=== PATIENT | female | born 1995 | race Caucasian/White ===

== ENCOUNTER 2021-08-27 12:16 | Emergency (ER) | payer OTHER, SELFPAY ==
[2021-08-27 12:29] VITALS: BP 119/65; PULSE 97; RESP 16; TEMP 36.4; O2SAT 97; BMI 38.4
--- NOTE | 2021-08-27 13:12 | ED.GENADULT ---
HPI - General Adult General Chief complaint: General Medical Stated complaint: throat issue Time Seen by Provider: 08/27/21 12:50 History of Present Illness HPI narrative: Patient is a 26-year-old female with a history of thyroid nodules. Presented today with having difficulty swallowing. Patient claims that she has no problem drinking water. She is eating but had to force it down. No vomiting. There is no change in her voice. There she is able to speak in complete sentences. Patient was seen at [facility] diagnosed with possible anxiety. Patient had a history of thyroid nodules. Was scheduled for a nodule biopsy last Saturday. No chest pain or diaphoresis. No history diabetes, hypertension, high cholesterol, smoking. No history of recreational drugs. Patient is from home. Related Data Allergies Allergy/AdvReac Type Severity Reaction Status Date / Time No Known Allergies Allergy Verified 08/27/21 13:12 Review of Systems Review of Systems: No fever no chills no chest pain or shortness of breath No diaphoresis All systems reviewed otherwise negative [facility] Past Medical History Attestation statement: The following information was validated with the patient. Medical History Thyroid nodule Surgical History Hx of tonsillectomy Social History Social History Advance Directives: No Physical Exam Vital Signs: Vital Signs: Last Vital Signs Temp 97.6 F 08/27/21 12:29 Pulse 97 08/27/21 12:29 Resp 16 08/27/21 12:29 BP 119/65 08/27/21 12:29 Pulse Ox 97 08/27/21 12:29 Body Mass Index 38.4 Appearance: Alert. Oriented X3. No acute distress. Eyes: Pupils equal, round and reactive to light. ENT: Pharynx normal. TMs intact. Nose is patent. No mid face tenderness elicited on palpation. Normal voice. Neck: Normal inspection. Neck supple. No lymph nodes noted. No crepitus. Trachea is midline. There is no mass palpable. CVS: Normal heart rate and rhythm. Pulses normal. Normal S1 and S2 Respiratory: No respiratory distress. Breath sounds normal. No Wheezing. No rales Abdomen: Soft and nontender. No rigidity. No distention. good BS x4 Skin: Skin warm and dry. Normal skin color. Normal skin turgor. Extremities: No lower extremity edema. Neurovascular intact to all extremities. No Lacerations. No Rash Neuro: Oriented X 3. No motor deficit. No sensory deficit. Moving all extermities. No slurred speech Medical Decision Making MDM Narrative Medical decision making narrative: Well-appearing no distress. Voice is normal. Able to swallow water without any difficulty. No shortness of breath. O2 sat 100% on room air. Discussed with patient need for follow-up. Patient's lungs are clear. Heart is regular. No distress. Explained patient need for outpatient workup. States understanding. Patient is being discharged home. Discharge Plan Discharge Clinical Impression: Throat pain Patient Disposition: Home, Self-Care Instructions: Thyroid Nodules (ED) Referrals: Physician,Unknown J [Primary Care Provider] - 2 days (Follow-up with your doctor in 2 days. Worsened breathing. Unable to swallow return to the emergency department. Change in voice return to the emergency department.)
--- NOTE | 2021-08-27 13:25 | PC.NURSE ---
this insurance underwriter sales went in to discharge pt, pt not found at bedside.
== END 2021-08-27 13:30 | disposition home or self-care (01) ==
PROVIDERS: Emergency Provider Emergency Medicine Emergency Medical Services
DX: J02.9 Acute pharyngitis, unspecified (principal); E04.1 Nontoxic single thyroid nodule
CPT/HCPCS: 99283

== ENCOUNTER 2021-09-25 23:23 | Emergency (ER) | payer OTHER, SELFPAY ==
[2021-09-26 01:22] VITALS: PULSE 95; RESP 18; TEMP 35.6; O2SAT 99; BMI 38.4
--- NOTE | 2021-09-26 01:39 | ED.GENADULT ---
HPI - General Adult General Chief complaint: General Medical Stated complaint: chest & leg pain, nausea, high bp Time Seen by Provider: 09/26/21 01:32 Source: patient Mode of arrival: ambulatory Limitations: no limitations History of Present Illness HPI narrative: Patient comes to the emergency room complaining of palpitations, near syncope. Patient states that she has history of anemia, states that earlier today she had palpitations, started feeling lightheaded. Patient did not pass out. Patient went to [facility], blood work was drawn but patient was not seen due to the long waiting time. At this time, patient is asymptomatic Related Data Allergies Allergy/AdvReac Type Severity Reaction Status Date / Time No Known Allergies Allergy Verified 08/27/21 13:12 Review of Systems Review of Systems: Constitutional : No Weight loss, No Fever, No Chills, No Night Sweats, No Fatigue, No Malaise ENT/Mouth : No Hearing loss, No Ear Pain, No Nasal Congestion, No Sinus Pain, No Hoarseness, No sore throat, No Rhinorrhea, No Swallowing Difficulty Eyes: No Eye Pain, No Swelling, No Redness, No Foreign Body, No Discharge, No Vision Changes Cardiovascular : Complaining of left-sided chest pain under the breast. No SOB, No Dyspnea on Exertion, No Orthopnea, No Edema, complaining of palpitations and near syncope/lightheadedness Respiratory : No Cough, No Sputum, No Wheezing, No Smoke Exposure, No Dyspnea Gastrointestinal : Complaining of Nausea, No Vomiting, No Diarrhea, No Constipation, No abdominal Pain, No Hematochezia, No Melena Genitourinary : no irregular bleeding, No Dysuria, No Urinary Frequency, No Hematuria, No Urinary Incontinence, No Urgency, No Flank Pain, No Urinary Flow Changes, No Hesitancy Musculoskeletal : No joint pain, No Myalgias, No Joint Swelling Skin : No Skin Lesions, No rash Neuro : No Weakness, No Numbness, No Paresthesias, No Loss of Consciousness, No Dizziness, No Headache Psych : No Anxiety/Panic, No Depression, No SI/HI/AH/VH, No Social Issues, Heme/Lymph: No Bruising, No Bleeding,No Lymphadenopathy Endocrine : No Polyuria, No Polydipsia, No Temperature Intolerance PMFSH Past Medical History Medical History (Updated 09/26/21 @ 03:03 by Jayde Marrufo MD) Eclampsia Thyroid nodule Surgical History Hx of tonsillectomy Social History Social History Advance Directives: No Physical Exam Vital Signs: Vital Signs: Last Vital Signs Temp 96.1 F L 09/26/21 01:22 Pulse 95 09/26/21 01:22 Resp 18 09/26/21 01:22 Pulse Ox 99 09/26/21 01:22 BMI result Body Mass Index 38.4 Const: Other: Appearance: Alert. Oriented X3. No acute distress. Eyes: Pupils equal, round and reactive to light. ENT: Pharynx normal. Neck: Normal inspection. Neck supple. No lymph nodes noted. No crepitus CVS: Normal heart rate and rhythm. Pulses normal. Normal S1 and S2 Respiratory: No respiratory distress. Breath sounds normal. No Wheezing. No rales Abdomen: Soft and nontender. No rigidity. No distention. good BS x4 Skin: Skin warm and dry. Normal skin color. Normal skin turgor. Extremities: No lower extremity edema. No Lacerations. No Rash Neuro: Oriented X 3. No motor deficit. No sensory deficit. Moving all extermities. No slurred speech. Course Course Course Narrative: I was informed by the patient's nurse that the patient eloped before the labs were drawn. Discharge Plan Discharge Clinical Impression: Palpitation, Near syncope Patient Disposition: Elopement Interventions: LWBS Worksheet Last Done: 09/26/21 01:42 Discharge Date/Time: 09/26/21 01:43
== END 2021-09-26 03:06 | disposition left against medical advice (07) ==
PROVIDERS: Emergency Provider Emergency Medicine; PCP Internal Medicine
DX: R00.2 Palpitations (principal); R55 Syncope and collapse
CPT/HCPCS: 99281; 99282; 99283; 99284

== ENCOUNTER 2021-12-16 02:38 | Emergency (ER) | payer OTHER, SELFPAY ==
--- NOTE | 2021-12-16 | ECG_ITS ---
Test Reason : PALP Blood Pressure : / mmHG Vent. Rate : 088 BPM Atrial Rate : 088 BPM P-R Int : 138 ms QRS Dur : 092 ms QT Int : 376 ms P-R-T Axes : 068 001 042 degrees QTc Int : 454 ms Normal sinus rhythm Normal ECG No previous ECGs available Referred By: Generic ED Physician Electronically Signed By:MISTY VALLE
[2021-12-16 02:47] VITALS: BP 116/66; PULSE 93; RESP 16; TEMP 35.8; O2SAT 100; BMI 38.4
--- NOTE | 2021-12-16 03:14 | ED.ARRPALP ---
HPI - Arrhythmia/Palpitations General Chief Complaint: Arrhythmia/Palpitations Stated Complaint: chest pain, heart palp Time Seen by Provider: 12/16/21 02:59 Source: patient Mode of arrival: ambulatory Limitations: no limitations History of Present Illness HPI narrative: Patient comes to the emergency room complaining of palpitations. Patient states that sometimes at night or when she is at rest she has episodes of palpitations, heart rate up to 130. Sometimes her chest hurts. Night patient had an episode of palpitations and came to emergency room. Patient states that this episodes have been ongoing since approximately 7 months ago, started after she gave to her baby. Patient states that she has a nodule in her thyroid, she has had multiple TSH and FT4 checks, and also fine-needle biopsies. Patient states that she has no diagnosis for the thyroid nodule Related Data Allergies Allergy/AdvReac Type Severity Reaction Status Date / Time amoxicillin Allergy Unknown Verified 12/16/21 02:46 clavulanic acid Allergy Unknown Verified 12/16/21 02:46 [From Augmentin] ibuprofen [From Motrin] Allergy Unknown Verified 12/16/21 02:46 sulfamethoxazole Allergy Unknown Verified 12/16/21 02:46 [From Bactrim] trimethoprim [From Bactrim] Allergy Unknown Verified 12/16/21 02:46 Review of Systems Review of Systems: Constitutional : No Weight loss, No Fever, No Chills, No Night Sweats, No Fatigue, No Malaise ENT/Mouth : No Hearing loss, No Ear Pain, No Nasal Congestion, No Sinus Pain, No Hoarseness, No sore throat, No Rhinorrhea, No Swallowing Difficulty Eyes: No Eye Pain, No Swelling, No Redness, No Foreign Body, No Discharge, No Vision Changes Cardiovascular : Occasional chest pain not at this time, No SOB, No Dyspnea on Exertion, No Orthopnea, No Edema, complaining of intermittent palpitations Respiratory : No Cough, No Sputum, No Wheezing, No Smoke Exposure, No Dyspnea Gastrointestinal : No Nausea, No Vomiting, No Diarrhea, No Constipation, No abdominal Pain, No Hematochezia, No Melena Genitourinary : no irregular bleeding, No Dysuria, No Urinary Frequency, No Hematuria, No Urinary Incontinence, No Urgency, No Flank Pain, No Urinary Flow Changes, No Hesitancy Musculoskeletal : No joint pain, No Myalgias, No Joint Swelling Skin : No Skin Lesions, No rash Neuro : No Weakness, No Numbness, No Paresthesias, No Loss of Consciousness, No Dizziness, No Headache Psych : No Anxiety/Panic, No Depression, No SI/HI/AH/VH, No Social Issues, Heme/Lymph: No Bruising, No Bleeding,No Lymphadenopathy Endocrine : No Polyuria, No Polydipsia, No Temperature Intolerance [facility] Past Medical History Medical History Eclampsia Thyroid nodule Surgical History Hx of tonsillectomy Social History Social History Advance Directives: No Advance Directives Information Provided: Yes Patient : No Physical Exam Vital Signs: Vital Signs: Last Vital Signs Temp 96.4 F L 12/16/21 02:47 Pulse 93 12/16/21 02:47 Resp 16 12/16/21 02:47 BP 116/66 12/16/21 02:47 Pulse Ox 100 12/16/21 02:47 BMI result Body Mass Index 38.4 Const: Other: Appearance: Alert. Oriented X3. No acute distress. Eyes: Pupils equal, round and reactive to light. ENT: Pharynx normal. Neck: Normal inspection. Neck supple. No lymph nodes noted. No crepitus CVS: Normal heart rate and rhythm. Pulses normal. Normal S1 and S2 Respiratory: No respiratory distress. Breath sounds normal. No Wheezing. No rales Abdomen: Soft and nontender. No rigidity. No distention. Skin: Skin warm and dry. Normal skin color. Normal skin turgor. Extremities: No lower extremity edema. No pain to palpation in the calf, No Lacerations. No Rash Neuro: Oriented X 3. No motor deficit. No sensory deficit. Moving all extermities. No slurred speech. Course Course Course Narrative: Patient has not had any episodes of tachycardia here in the emergency room. Patient remains asymptomatic. I discussed with the patient that she will likely benefit from a Holter monitor evaluation. MDM - Arrhythmia/Palpitations Lab Data Result diagrams: 12/16/21 03:33 12/16/21 03:33 Labs: Lab Results 12/16/21 12/16/21 12/16/21 Range/Units 03:33 03:33 03:33 WBC 7.5 (4.8-10.8) X10*3/uL RBC 4.52 (4.20-5.50) X10*6/uL Hgb 12.3 (12.0-16.0) g/dl Hct 37.5 (37.0-47.0) % MCV 83.0 (80.0-98.0) fL MCH 27.2 (27.0-33.0) pg MCHC 32.8 (31.0-35.0) g/dl RDW 14.6 (11.0-16.0) % Plt Count 269 (160-400) X10*3/uL MPV 10.5 (9.4-12.3) fL Immature Gran % (Auto) 0.1 (0.0-0.4) % Neut % (Auto) 60.7 (45-73) % Lymph % (Auto) 28.5 (20-40) % Scott % (Auto) 8.4 (2-11) % Eos % (Auto) 1.9 (0-4) % Baso % (Auto) 0.4 (0-2) % Lymph # (Auto) 2.1 (1.2-4.9) X10*3/uL Scott # (Auto) 0.6 (0.1-1.2) X10*3/uL Eos # (Auto) 0.1 (0.0-0.4) X10*3/uL Baso # (Auto) 0.0 (0.0-0.2) X10*3/uL Abs Immat Gran (auto) 0.01 (0.00-0.03) X10*3/uL Absolute Neuts (auto) 4.5 (2.0-8.3) x10*3/uL Absolute Nucleated RBC 0.000 (0.0-0.012) X10*3/uL Nucleated RBC % (auto) 0.0 (0.0-0.2) /100WBC Sodium 140 (135-145) mmol/L Potassium 4.2 (3.3-5.1) mmol/L Chloride 110 H (96-108) mmol/L Carbon Dioxide 21 L (22-29) mmol/L Anion Gap 13 (12-20) BUN 11 (9-16) mg/dL Creatinine 0.90 (0.5-1.4) mg/dL Estim Creat Clear Calc 131.1 Estimated GFR > 60 Random Glucose 100 (60-115) mg/dL Calcium 9.1 (8.4-10.2) mg/dL Troponin I High Sens < 3.5 (<3.5-17.0) ng/L TSH (0.32-4.0) uIU/mL Urine Test (NEGATIVE) Urine Opiates Screen (Not Detect) Urine Fentanyl Screen (Not Detect) Ur Barbiturates Screen (Not Detect) Ur Phencyclidine Scrn (Not Detect) Ur Amphetamines Screen (Not Detect) U Benzodiazepines Scrn (Not Detect) Urine Cocaine Screen (Not Detect) U Marijuana (THC) Screen (Not Detect) 12/16/21 12/16/21 12/16/21 Range/Units 03:33 03:35 03:35 WBC (4.8-10.8) X10*3/uL RBC (4.20-5.50) X10*6/uL Hgb (12.0-16.0) g/dl Hct (37.0-47.0) % MCV (80.0-98.0) fL MCH (27.0-33.0) pg MCHC (31.0-35.0) g/dl RDW (11.0-16.0) % Plt Count (160-400) X10*3/uL MPV (9.4-12.3) fL Immature Gran % (Auto) (0.0-0.4) % Neut % (Auto) (45-73) % Lymph % (Auto) (20-40) % Scott % (Auto) (2-11) % Eos % (Auto) (0-4) % Baso % (Auto) (0-2) % Lymph # (Auto) (1.2-4.9) X10*3/uL Scott # (Auto) (0.1-1.2) X10*3/uL Eos # (Auto) (0.0-0.4) X10*3/uL Baso # (Auto) (0.0-0.2) X10*3/uL Abs Immat Gran (auto) (0.00-0.03) X10*3/uL Absolute Neuts (auto) (2.0-8.3) x10*3/uL Absolute Nucleated RBC (0.0-0.012) X10*3/uL Nucleated RBC % (auto) (0.0-0.2) /100WBC Sodium (135-145) mmol/L Potassium (3.3-5.1) mmol/L Chloride (96-108) mmol/L Carbon Dioxide (22-29) mmol/L Anion Gap (12-20) BUN (9-16) mg/dL Creatinine (0.5-1.4) mg/dL Estim Creat Clear Calc Estimated GFR Random Glucose (60-115) mg/dL Calcium (8.4-10.2) mg/dL Troponin I High Sens (<3.5-17.0) ng/L TSH 0.55 (0.32-4.0) uIU/mL Urine Test NEGATIVE (NEGATIVE) Urine Opiates Screen Not Detected (Not Detect) Urine Fentanyl Screen Not Detected (Not Detect) Ur Barbiturates Screen Not Detected (Not Detect) Ur Phencyclidine Scrn Not Detected (Not Detect) Ur Amphetamines Screen Not Detected (Not Detect) U Benzodiazepines Scrn Not Detected (Not Detect) Urine Cocaine Screen Not Detected (Not Detect) U Marijuana (THC) Screen Not Detected (Not Detect) Discharge Plan Discharge Clinical Impression: Palpitations Patient Disposition: Home, Self-Care Instructions: Heart Palpitations (ED) Additional Instructions: Please follow-up with your primary care physician tomorrow. If you have any worsening or new symptoms, please return to the emergency room or call 911 Referrals: Lee Lan MD [Physician] - 2 days
[2021-12-16 03:37] LABS: Basophils Percent Auto 0.4 % (0-2); Eosinophils Absolute Auto 0.1 X10*3/uL (0.0-0.4); Eosinophils Percent Auto 1.9 % (0-4); Hematocrit 37.5 % (37.0-47.0); Hemoglobin 12.3 g/dl (12.0-16.0); Imm Gran Abs Auto 0.01 X10*3/uL (0.00-0.03); Imm Gran Pct Auto 0.1 % (0.0-0.4); Lymphocytes Absolute Auto 2.1 X10*3/uL (1.2-4.9); Lymphocytes Percent Auto 28.5 % (20-40); MANUAL DIFF FLAG NO; Mean Corpuscular HGB Conc 32.8 g/dl (31.0-35.0); Mean Corpuscular Hemoglobin 27.2 pg (27.0-33.0); Mean Platelet Volume 10.5 fL (9.4-12.3); Monocytes Absolute Auto 0.6 X10*3/uL (0.1-1.2); Monocytes Percent Auto 8.4 % (2-11); Neutrophils Absolute Auto 4.5 x10*3/uL (2.0-8.3); Neutrophils Percent Auto 60.7 % (45-73); Platelet Count 269 X10*3/uL (160-400); Red Blood Count 4.52 X10*6/uL (4.20-5.50); Red Cell Distribution Width 14.6 % (11.0-16.0); White Blood Count 7.5 X10*3/uL (4.8-10.8)
[2021-12-16 03:41] LABS: UPreg QC Valid YES; Urine Pregnancy NEGATIVE (NEGATIVE)
[2021-12-16 03:55] LABS: Anion Gap 13 (12-20); Blood Urea Nitrogen 11 mg/dL (9-16); Calcium 9.1 mg/dL (8.4-10.2); Carbon Dioxide 21 mmol/L (22-29); Chloride 110 mmol/L (96-108); Creatinine Clr Calc Pharmacy 131.1; Estimated Glomerular Filt Rate > 60; Glucose Random 100 mg/dL (60-115); Potassium 4.2 mmol/L (3.3-5.1); Sodium 140 mmol/L (135-145)
[2021-12-16 03:57] LABS: Amphetamine Screen Urine Not Detected (Not Detect); Barbiturates, Urine Not Detected (Not Detect); Benzodiazepines Screen Urine Not Detected (Not Detect); Cannabinoid Screen Urine Not Detected (Not Detect); Cocaine Screen Urine Not Detected (Not Detect); Fentanyl, urine Not Detected (Not Detect); Opiate Screen Urine Not Detected (Not Detect); Phencyclidine Screen Urine Not Detected (Not Detect)
[2021-12-16 04:00] LABS: Troponin-I High Sensitivity < 3.5 ng/L (<3.5-17.0)
[2021-12-16 04:19] LABS: TSH reflex Free T4 0.55 uIU/mL (0.32-4.0)
== END 2021-12-16 04:39 | disposition home or self-care (01) ==
PROVIDERS: Emergency Provider Emergency Medicine
DX: R00.2 Palpitations (principal); E04.1 Nontoxic single thyroid nodule
CPT/HCPCS: 36415; 80048; 80307; 81025; 84443; 84484; 85025; 93005; 99283

== ENCOUNTER 2021-12-18 01:57 | Emergency (ER) | payer OTHER, SELFPAY ==
--- NOTE | 2021-12-18 | ECG_ITS ---
Test Reason : CP Blood Pressure : / mmHG Vent. Rate : 081 BPM Atrial Rate : 081 BPM P-R Int : 148 ms QRS Dur : 090 ms QT Int : 392 ms P-R-T Axes : 051 -07 041 degrees QTc Int : 455 ms Normal sinus rhythm Normal ECG When compared with ECG of 16-DEC-2021 02:51, No significant change was found Referred By: Generic ED Physician Electronically Signed By:Gerhard Wyman
[2021-12-18 02:18] VITALS: BP 127/66; PULSE 87; RESP 18; TEMP 36.3; O2SAT 98; BMI 38.2
--- NOTE | 2021-12-18 02:31 | ED.CHESTPAIN ---
HPI - Chest Pain General Chief Complaint: Chest Pain Stated Complaint: chest pain Time Seen by Provider: 12/18/21 02:15 Source: patient Mode of arrival: ambulatory Limitations: no limitations History of Present Illness HPI narrative: Patient comes to the emergency room complaining of recurrent palpitations. Patient was seen here 2 days ago by myself, workup was negative. Also, patient was in the monitor for a several hours, she had no arrhythmias. Patient has had palpitations and sometimes intermittently for 7 months now, started after she delivered her baby, pt had pre ecalmpsia, but her BP improved 3 weeks post . Patient is working on trying to get seen by Cardiology. Patient denies right now any chest pain, no shortness of breath, no syncopal or near syncopal episodes, no palpitations at this time and states that she is asymptomatic Related Data Previous Rx's Medication Instructions Recorded metoprolol succinate 25 mg 25 mg PO DAILY #30 tab 12/18/21 tablet,extended release 24 hr (Toprol XL) Allergies Allergy/AdvReac Type Severity Reaction Status Date / Time amoxicillin Allergy Unknown Verified 12/16/21 02:46 clavulanic acid Allergy Unknown Verified 12/16/21 02:46 [From Augmentin] ibuprofen [From Motrin] Allergy Unknown Verified 12/16/21 02:46 sulfamethoxazole Allergy Unknown Verified 12/16/21 02:46 [From Bactrim] trimethoprim [From Bactrim] Allergy Unknown Verified 12/16/21 02:46 Review of Systems Review of Systems: Constitutional : No Weight loss, No Fever, No Chills, No Night Sweats, No Fatigue, No Malaise ENT/Mouth : No Hearing loss, No Ear Pain, No Nasal Congestion, No Sinus Pain, No Hoarseness, No sore throat, No Rhinorrhea, No Swallowing Difficulty Eyes: No Eye Pain, No Swelling, No Redness, No Foreign Body, No Discharge, No Vision Changes Cardiovascular : No Chest Pain, No SOB, No Dyspnea on Exertion, No Orthopnea, No Edema, complaining of intermittent Palpitations Respiratory : No Cough, No Sputum, No Wheezing, No Smoke Exposure, No Dyspnea Gastrointestinal : No Nausea, No Vomiting, No Diarrhea, No Constipation, No abdominal Pain, No Hematochezia, No Melena Genitourinary : no irregular bleeding, No Dysuria, No Urinary Frequency, No Hematuria, No Urinary Incontinence, No Urgency, No Flank Pain, No Urinary Flow Changes, No Hesitancy Musculoskeletal : No joint pain, No Myalgias, No Joint Swelling Skin : No Skin Lesions, No rash Neuro : No Weakness, No Numbness, No Paresthesias, No Loss of Consciousness, No Dizziness, No Headache Psych : No Anxiety/Panic, No Depression, No SI/HI/AH/VH, No Social Issues, Heme/Lymph: No Bruising, No Bleeding,No Lymphadenopathy Endocrine : No Polyuria, No Polydipsia, No Temperature Intolerance [facility] Past Medical History Medical History Eclampsia Thyroid nodule Surgical History Hx of tonsillectomy Social History Social History Advance Directives: No Advance Directives Information Provided: Yes Patient : No Physical Exam Vital Signs: Vital Signs: Last Vital Signs Temp 97.3 F 12/18/21 02:18 Pulse 87 12/18/21 02:18 Resp 18 12/18/21 02:18 BP 127/66 12/18/21 02:18 Pulse Ox 98 12/18/21 02:18 BMI result Body Mass Index 38.2 Const: Other: Appearance: Alert. Oriented X3. No acute distress. Eyes: Pupils equal, round and reactive to light. ENT: Pharynx normal. Neck: Normal inspection. Neck supple. No lymph nodes noted. No crepitus CVS: Normal heart rate and rhythm. Pulses normal. Normal S1 and S2 Respiratory: No respiratory distress. Breath sounds normal. No Wheezing. No rales Abdomen: Soft and nontender. No rigidity. No distention. Skin: Skin warm and dry. Normal skin color. Normal skin turgor. Extremities: No lower extremity edema. No lower extremity edema. No Lacerations. No Rash Neuro: Oriented X 3. No motor deficit. No sensory deficit. Moving all extermities. No slurred speech. Course Course Course Narrative: Patient's heart rate within normal limits, blood pressure 127/66, heart rate a 87. Patient had a thorough workup less than 48 hours ago. On her previous visit, I discussed with the patient that if she continued having intermittent palpitations, she would benefit from a beta-franco. Today I discussed the planning with the patient, she is agreeable to start metoprolol, and will follow up with Cardiology. Also, patient will likely need a Holter monitor. MDM - Chest Pain ECG Data ECG #1: Attestation: I personally reviewed and interpreted this ECG as follows: (Sinus rhythm, heart rate 81, this segment depression or elevation, no T-wave inversion, QTC 455) Discharge Plan Discharge Clinical Impression: Palpitation Patient Disposition: Home, Self-Care Instructions: Heart Palpitations (DC) Additional Instructions: Please follow-up with Cardiology and your primary care physician tomorrow. If you have any worsening or new symptoms, please return to the emergency room or call 911 Prescriptions: New metoprolol succinate [Toprol XL] 25 mg tablet extended release 24 hr 25 mg PO DAILY Qty: 30 0RF
[2021-12-18 02:39] VITALS: BP 120/51; PULSE 74; RESP 18; O2SAT 99
[2021-12-18] MEDS: Metoprolol Tartrate 25 MG TABLET PO (02:44)
== END 2021-12-18 02:47 | disposition home or self-care (01) ==
PROVIDERS: Emergency Provider Emergency Medicine; PCP Family Medicine
DX: R00.2 Palpitations (principal)
CPT/HCPCS: 93005; 99283; 99284

== ENCOUNTER 2022-01-24 21:04 | Emergency (ER) | payer OTHER, SELFPAY ==
--- NOTE | ~2022-01-24 | XR_ITS ---
EXAMINATION: XR CHEST CLINICAL INFORMATION: Chest tightness COMPARISON: None TECHNIQUE: Frontal view of the chest was obtained. FINDINGS: No significant abnormality is noted involving the heart, lungs, mediastinum, bony thorax or soft tissues. XR/XR chest 1V IMPRESSION: Unremarkable examination.
[2022-01-24 21:16] VITALS: BP 122/60; PULSE 105; RESP 18; TEMP 36.2; O2SAT 97; BMI 37.3
--- NOTE | 2022-01-24 21:21 | ECG_ITS ---
Test Reason : PALPITATIONS Blood Pressure : / mmHG Vent. Rate : 094 BPM Atrial Rate : 094 BPM P-R Int : 138 ms QRS Dur : 084 ms QT Int : 368 ms P-R-T Axes : 067 -13 032 degrees QTc Int : 460 ms Normal sinus rhythm Normal ECG When compared with ECG of 18-DEC-2021 02:03, No significant change was found Referred By: Generic ED Physician Electronically Signed By:ASHISH CHATTERJEE MD
[2022-01-24 22:07] LABS: MANUAL DIFF FLAG NO
[2022-01-24 22:09] LABS: Basophils Percent Auto 0.6 % (0-2); Eosinophils Absolute Auto 0.1 X10*3/uL (0.0-0.4); Eosinophils Percent Auto 1.1 % (0-4); Hematocrit 38.8 % (37.0-47.0); Hemoglobin 12.8 g/dl (12.0-16.0); Imm Gran Abs Auto 0.01 X10*3/uL (0.00-0.03); Imm Gran Pct Auto 0.2 % (0.0-0.4); Lymphocytes Absolute Auto 1.5 X10*3/uL (1.2-4.9); Lymphocytes Percent Auto 22.8 % (20-40); Mean Corpuscular Hemoglobin 27.5 pg (27.0-33.0); Mean Corpuscular Volume 83.3 fL (80.0-98.0); Mean Platelet Volume 10.1 fL (9.4-12.3); Monocytes Absolute Auto 0.6 X10*3/uL (0.1-1.2); Monocytes Percent Auto 8.6 % (2-11); Neutrophils Absolute Auto 4.4 x10*3/uL (2.0-8.3); Neutrophils Percent Auto 66.7 % (45-73); Platelet Count 342 X10*3/uL (160-400); Red Blood Count 4.66 X10*6/uL (4.20-5.50); Red Cell Distribution Width 14.1 % (11.0-16.0); White Blood Count 6.6 X10*3/uL (4.8-10.8)
[2022-01-24 22:26] LABS: Anion Gap 12 (12-20); Blood Urea Nitrogen 6 mg/dL (9-16); Calcium 9.7 mg/dL (8.4-10.2); Carbon Dioxide 25 mmol/L (22-29); Chloride 107 mmol/L (96-108); Creatinine Clr Calc Pharmacy 143.5; Estimated Glomerular Filt Rate > 60; Glucose Random 89 mg/dL (60-115); Potassium 4.3 mmol/L (3.3-5.1); Sodium 140 mmol/L (135-145)
--- NOTE | 2022-01-24 23:28 | ED.CHESTPAIN ---
HPI - Chest Pain General Chief Complaint: General Medical Stated Complaint: Chest tightness Time Seen by Provider: 01/24/22 23:27 Source: patient and old records reviewed Mode of arrival: ambulatory Limitations: no limitations History of Present Illness MD complaint: chest pain (palpitations, brain fog, poor sleep, headaches) Pertinent past history: other (frequent palpitations, told her PCOS was resolved after losing weight) Onset (ago): month(s) (on and off for months, this bout since last night) Timing of current episode: episodic Prior episodes: Yes Onset: during rest and during exertion Pain location: left chest and right chest Pain radiation: none Severity: moderate Quality: tightness Relieving factors: nothing Exacerbating factors: movement and stress Context: other (hx of bouts since delivering baby in April) Associated symptoms: dyspnea and palpitations Treatment prior to arrival: other (tried metoprolol and sertraline without effect) Related Data Previous Rx's Medication Instructions Recorded metoprolol succinate 25 mg 25 mg PO DAILY #30 tab 12/18/21 tablet,extended release 24 hr (Toprol XL) Allergies Allergy/AdvReac Type Severity Reaction Status Date / Time amoxicillin Allergy Unknown Verified 01/24/22 21:21 clavulanic acid Allergy Unknown Verified 01/24/22 21:21 [From Augmentin] ibuprofen [From Motrin] Allergy Unknown Verified 01/24/22 21:21 sulfamethoxazole Allergy Unknown Verified 01/24/22 21:21 [From Bactrim] trimethoprim [From Bactrim] Allergy Unknown Verified 01/24/22 21:21 Review of Systems Review of Systems: Constitutional : No Weight loss, No Fever, No Chills ENT/Mouth : No sore throat, No Rhinorrhea Eyes: No Eye Pain, No Swelling Cardiovascular : pos Chest Pain, no SOB, no Dyspnea on Exertion, No Orthopnea, No Edema, pos Palpitations Respiratory : No Cough, No Sputum Gastrointestinal : pos Nausea, No Vomiting, No Diarrhea, No abdominal Pain, No Hematochezia, No Melena Genitourinary : No Dysuria, No Urinary Frequency, pos irregular bleeding Musculoskeletal : No joint pain, No Myalgias, No Joint Swelling Skin : No Skin Lesions, No rash Neuro : No Weakness, No Numbness, No Dizziness, pos Headaches Psych : pos Anxiety/Panic, No Depression, pos insomnia Heme/Lymph: No Bruising, No Lymphadenopathy Endocrine : No Polyuria, No Polydipsia All other systems reviewed and are negative [facility] Past Medical History Medical History Eclampsia Thyroid nodule Surgical History Hx of tonsillectomy Social History Social History (Updated 01/24/22 @ 23:29 by Petra Rivera DO) Patient Tobacco Use Status: Never used Tobacco Advance Directives: No Advance Directives Information Provided: No Patient : No Physical Exam Vital Signs: Vital Signs: Last Vital Signs Temp 97.1 F 01/24/22 21:16 Pulse 105 H 01/24/22 21:16 Resp 18 01/24/22 21:16 BP 122/60 01/24/22 21:16 Pulse Ox 97 01/24/22 21:16 BMI result Body Mass Index 37.3 Appearance: Alert. Oriented X3. No acute distress. Eyes: Pupils equal, round and reactive to light. ENT: Pharynx normal. Neck: Normal inspection. Neck supple. CVS: Normal heart rate and rhythm. Pulses normal. Respiratory: No respiratory distress. Breath sounds normal. Abdomen: Soft and non-tender. Skin: Skin warm and dry. Normal skin color. Normal skin turgor. Extremities: No lower extremity edema. No calf ttp Neuro: Oriented X 3. No motor deficit. No sensory deficit. MDM - Chest Pain MDM Narrative Medical decision making narrative: 26 yo female with hx of palpitations for months, pre-eclampsia with child born in April not on medications since 2 weeks after, anxiety and depression - not on any meds right now other than PRN ativan. At this time repeat visits for palpitations has tried metoprolol but taken off due to low BP, has appointment with Cardiology at the end of this month at [facility] for 48 hour holter monitor. She also has hx of PCOS but was told it went away since she lost weight - she notes still irregular periods, palpitations, has some frontal hair loss, brain fog - ? her symptoms related to PCOS given the chronicity. At this time will order labs but refer her to [facility] where she is seen for possible PCOS as her underlying cause of symptoms Lab Data Result diagrams: 01/24/22 22:03 01/24/22 22:03 Labs: Lab Results 04/04/1101/24/22 01/24/22 Range/Units 22:03 22:03 22:03 WBC 6.6 (4.8-10.8) X10*3/uL RBC 4.66 (4.20-5.50) X10*6/uL Hgb 12.8 (12.0-16.0) g/dl Hct 38.8 (37.0-47.0) % MCV 83.3 (80.0-98.0) fL MCH 27.5 (27.0-33.0) pg MCHC 33.0 (31.0-35.0) g/dl RDW 14.1 (11.0-16.0) % Plt Count 342 D (160-400) X10*3/uL MPV 10.1 (9.4-12.3) fL Immature Gran % (Auto) 0.2 (0.0-0.4) % Neut % (Auto) 66.7 (45-73) % Lymph % (Auto) 22.8 (20-40) % Page % (Auto) 8.6 (2-11) % Eos % (Auto) 1.1 (0-4) % Baso % (Auto) 0.6 (0-2) % Lymph # (Auto) 1.5 (1.2-4.9) X10*3/uL Page # (Auto) 0.6 (0.1-1.2) X10*3/uL Eos # (Auto) 0.1 (0.0-0.4) X10*3/uL Baso # (Auto) 0.0 (0.0-0.2) X10*3/uL Abs Immat Gran (auto) 0.01 (0.00-0.03) X10*3/uL Absolute Neuts (auto) 4.4 (2.0-8.3) x10*3/uL Absolute Nucleated RBC 0.000 (0.0-0.012) X10*3/uL Nucleated RBC % (auto) 0.0 (0.0-0.2) /100WBC Sodium 140 (135-145) mmol/L Potassium 4.3 (3.3-5.1) mmol/L Chloride 107 (96-108) mmol/L Carbon Dioxide 25 (22-29) mmol/L Anion Gap 12 (12-20) BUN 6 L (9-16) mg/dL Creatinine 0.81 (0.5-1.4) mg/dL Estim Creat Clear Calc 143.5 Estimated GFR > 60 Random Glucose 89 (60-115) mg/dL Calcium 9.7 D (8.4-10.2) mg/dL Troponin I High Sens < 3.5 (<3.5-17.0) ng/L ECG Data ECG #1: Attestation: I personally reviewed and interpreted this ECG as follows: ECG interpretation date: 01/24/22 ECG interpretation time: 23:29 Interpretation: Rate: 94 Rhythm: NSR Callahan: left Normal P waves. Normal PRINCESS. Normal QRS complex. ST T wave : normal no YUE qTC: normal prior studies: unchanged from priors The study has been interpreted contemporaneously by me. Discharge Plan Discharge Clinical Impression: Heart palpitations Patient Disposition: Home, Self-Care Instructions: Heart Palpitations (ED) Additional Instructions: return to ED for any worsening symptoms or concerns your symptoms might be related to PCOS and hormone surges possible specialist Janet Esteban [facility] [phone] Prescriptions: No Action metoprolol succinate [Toprol XL] 25 mg tablet extended release 24 hr 25 mg PO DAILY Qty: 30 0RF Stand Alone Forms: Work/School Release
[2022-01-24 23:51] LABS: Troponin-I High Sensitivity < 3.5 ng/L (<3.5-17.0)
== END 2022-01-25 00:17 | disposition home or self-care (01) ==
PROVIDERS: Emergency Provider Emergency Medicine; PCP Family Medicine
DX: R07.9 Chest pain, unspecified (principal); R00.2 Palpitations; Z79.899 Other long term (current) drug therapy
CPT/HCPCS: 36415; 71045; 80048; 84484; 85025; 93005; 99283; 99284

== ENCOUNTER 2022-02-02 22:06 | Emergency (ER) | payer OTHER, SELFPAY ==
[2022-02-02 22:35] VITALS: BP 133/71; PULSE 112; RESP 18; TEMP 37.2; O2SAT 98; BMI 33.0
[2022-02-02 22:58] LABS: COVID-19 Test Negative (Negative); IDNOW Serial# 55D5AD1C; Influenza A Negative (Negative); Influenza B2 Negative (Negative)
--- NOTE | 2022-02-03 01:02 | ED.URI ---
HPI - URI/Sore Throat General Chief Complaint: Upper Respiratory Symptoms Stated Complaint: Cough/Chills Time Seen by Provider: 02/03/22 01:01 Source: patient Mode of arrival: ambulatory Limitations: no limitations History of Present Illness HPI Narrative: Patient Comes to emergency room complaining of 3 days of cough, congestion and chills. Patient was seen by her primary care physician a few hours ago, patient was diagnosed with influenza, Tamiflu was sent to the patient's pharmacy and prednisone. Patient's baby and checked in to be assessed for influenza, therefore patient decided to check in as well although she has no new complaints and already has a diagnosis Related Data Previous Rx's Medication Instructions Recorded metoprolol succinate 25 mg 25 mg PO DAILY #30 tab 12/18/21 tablet,extended release 24 hr (Toprol XL) Allergies Allergy/AdvReac Type Severity Reaction Status Date / Time amoxicillin Allergy Unknown Verified 01/24/22 21:21 clavulanic acid Allergy Unknown Verified 01/24/22 21:21 [From Augmentin] ibuprofen [From Motrin] Allergy Unknown Verified 01/24/22 21:21 sulfamethoxazole Allergy Unknown Verified 01/24/22 21:21 [From Bactrim] trimethoprim [From Bactrim] Allergy Unknown Verified 01/24/22 21:21 Review of Systems Review of Systems: Constitutional : No Weight loss, No Fever, complaining of Chills, No Night Sweats, No Fatigue, No Malaise ENT/Mouth : No Hearing loss, No Ear Pain, No Nasal Congestion, No Sinus Pain, No Hoarseness, No sore throat, No Rhinorrhea, No Swallowing Difficulty Eyes: No Eye Pain, No Swelling, No Redness, No Foreign Body, No Discharge, No Vision Changes Cardiovascular : No Chest Pain, No SOB, No Dyspnea on Exertion, No Orthopnea, No Edema, No Palpitations Respiratory : complaining of cough and congestion, occasional wheezing Gastrointestinal : No Nausea, No Vomiting, No Diarrhea, No Constipation, No abdominal Pain, No Hematochezia, No Melena Genitourinary : no irregular bleeding, No Dysuria, No Urinary Frequency, No Hematuria, No Urinary Incontinence, No Urgency, No Flank Pain, No Urinary Flow Changes, No Hesitancy Musculoskeletal : No joint pain, No Myalgias, No Joint Swelling Skin : No Skin Lesions, No rash Neuro : No Weakness, No Numbness, No Paresthesias, No Loss of Consciousness, No Dizziness, No Headache Psych : No Anxiety/Panic, No Depression, No SI/HI/AH/VH, No Social Issues, Heme/Lymph: No Bruising, No Bleeding,No Lymphadenopathy Endocrine : No Polyuria, No Polydipsia, No Temperature Intolerance PMF Past Medical History Medical History Eclampsia Thyroid nodule Surgical History Hx of tonsillectomy Social History Social History (Updated 01/24/22 @ 23:29 by Petra Rivera DO) Patient Tobacco Use Status: Never used Tobacco Advance Directives: No Physical Exam Vital Signs: Vital Signs: Last Vital Signs Temp 98.9 F 02/02/22 22:35 Pulse 112 H 02/02/22 22:35 Resp 18 02/02/22 22:35 BP 133/71 02/02/22 22:35 Pulse Ox 98 02/02/22 22:35 BMI result Body Mass Index 33.0 Const: Other: Appearance: Alert. Oriented X3. No acute distress. Eyes: Pupils equal, round and reactive to light. ENT: Pharynx normal. Neck: Normal inspection. Neck supple. No lymph nodes noted. No crepitus CVS: Normal heart rate and rhythm. Pulses normal. Normal S1 and S2 Respiratory: No respiratory distress. Breath sounds normal. No Wheezing. No rales Abdomen: Soft and nontender. No rigidity. No distention. Skin: Skin warm and dry. Normal skin color. Normal skin turgor. Extremities: No lower extremity edema. No Lacerations. No Rash Neuro: Oriented X 3. No motor deficit. No sensory deficit. Moving all extremities. No slurred speech. CN 2 through 12 grossly intact Psych: calm, cooperative, normal affect Course Course Course Narrative: Here in the emergency room patient tested negative for COVID and influenza. Patient states that she is afraid of taking Tamiflu that was prescribed earlier today because she is known to have adverse effects to several medications. I discussed with the patient that if she is concerned, not take the Tamiflu. It has been 3 days since the patient started having the symptoms, it is unlikely that Tamiflu would have any significant benefits. MDM - URI/Sore Throat Lab Data Labs: Lab Results 02/02/22 02/02/22 Range/Units 22:30 22:30 COVID-19 ([facility]) Negative (Negative) COVID-19 Clin Com See Note Influenza Type A ([facility]) Negative (Negative) Influenza Type B ([facility]) Negative (Negative) Influenza A & B Note See Note Discharge Plan Discharge Clinical Impression: Acute viral syndrome Patient Disposition: Home, Self-Care Instructions: Viral Syndrome (ED) Additional Instructions: Please follow-up with your primary care physician tomorrow. If you have any worsening or new symptoms, please return to the emergency room or call 911 Prescriptions: No Action metoprolol succinate [Toprol XL] 25 mg tablet extended release 24 hr 25 mg PO DAILY Qty: 30 0RF
== END 2022-02-03 02:18 | disposition home or self-care (01) ==
PROVIDERS: Emergency Provider Emergency Medicine; PCP Family Medicine
DX: B34.9 Viral infection, unspecified (principal); Z20.822 Contact with and (suspected) exposure to COVID-19
CPT/HCPCS: 87502; 87635; 99283

== ENCOUNTER 2022-02-17 20:37 | Emergency (ER) | payer OTHER, SELFPAY ==
--- NOTE | 2022-02-17 | ECG_ITS ---
Test Reason : chest pain Blood Pressure : / mmHG Vent. Rate : 090 BPM Atrial Rate : 090 BPM P-R Int : 142 ms QRS Dur : 090 ms QT Int : 362 ms P-R-T Axes : 004 075 026 degrees QTc Int : 442 ms Normal sinus rhythm Normal ECG When compared with ECG of 24-JAN-2022 21:51, Questionable change in QRS axis Referred By: Generic ED Physician Electronically Signed By:MISTY VALLE
--- NOTE | ~2022-02-17 | XR_ITS ---
EXAMINATION: XR CHEST CLINICAL INFORMATION: Chest pain. Shortness of breath. COMPARISON: Chest radiograph dated 01/24/2022. TECHNIQUE: Frontal view of the chest was obtained. FINDINGS: The lungs are clear. The cardiomediastinal silhouette is normal in size. There is no pleural effusion or pneumothorax. No acute osseous abnormality. XR/XR chest 1V IMPRESSION: No acute cardiopulmonary findings.
[2022-02-17 20:48] VITALS: BP 113/68; PULSE 93; RESP 18; TEMP 36.8; O2SAT 100; BMI 36.8
[2022-02-17 21:01] LABS: MANUAL DIFF FLAG NO
[2022-02-17 21:02] LABS: Basophils Percent Auto 0.4 % (0-2); Eosinophils Absolute Auto 0.1 X10*3/uL (0.0-0.4); Eosinophils Percent Auto 1.8 % (0-4); Hematocrit 37.1 % (37.0-47.0); Hemoglobin 12.5 g/dl (12.0-16.0); Imm Gran Abs Auto 0.02 X10*3/uL (0.00-0.03); Imm Gran Pct Auto 0.3 % (0.0-0.4); Lymphocytes Absolute Auto 1.9 X10*3/uL (1.2-4.9); Lymphocytes Percent Auto 26.1 % (20-40); Mean Corpuscular HGB Conc 33.7 g/dl (31.0-35.0); Mean Corpuscular Hemoglobin 27.6 pg (27.0-33.0); Mean Corpuscular Volume 81.9 fL (80.0-98.0); Mean Platelet Volume 10.5 fL (9.4-12.3); Monocytes Absolute Auto 0.6 X10*3/uL (0.1-1.2); Monocytes Percent Auto 8.2 % (2-11); Neutrophils Absolute Auto 4.5 x10*3/uL (2.0-8.3); Neutrophils Percent Auto 63.2 % (45-73); Platelet Count 318 X10*3/uL (160-400); Red Blood Count 4.53 X10*6/uL (4.20-5.50); Red Cell Distribution Width 13.9 % (11.0-16.0); White Blood Count 7.1 X10*3/uL (4.8-10.8)
[2022-02-17 21:18] VITALS: BP 123/70; PULSE 97; RESP 17; O2SAT 100
[2022-02-17 21:20] LABS: Troponin-I High Sensitivity < 3.5 ng/L (<3.5-17.0)
[2022-02-17 21:22] LABS: Alanine Aminotransferase 41 U/L (0-31); Albumin Level 4.2 g/dL (3.5-5.0); Alkaline Phosphatase 70 U/L (39-117); Anion Gap 12 (12-20); Aspartate Amino Transferase 31 U/L (5-31); Bilirubin Total 0.3 mg/dL (0.0-1.0); Blood Urea Nitrogen 8 mg/dL (9-16); Calcium 9.3 mg/dL (8.4-10.2); Carbon Dioxide 25 mmol/L (22-29); Chloride 109 mmol/L (96-108); Creatinine Clr Calc Pharmacy 121.3; Estimated Glomerular Filt Rate > 60; Glucose Random 103 mg/dL (60-115); Potassium 4.4 mmol/L (3.3-5.1); Sodium 142 mmol/L (135-145); Total Protein 7.6 g/dL (6.5-8.0)
[2022-02-17 21:28] LABS: Appearance Urine CLEAR; Color Urine YELLOW; Glucose Urine UA NEG (NEG); Leukocyte Esterase Urine NEG (NEG); Nitrite Urine NEG (NEG); Specific Gravity - Urine <= 1.005 (1.005-1.025); Urine Blood NEG (NEG); Urine Ketones NEG (NEG); Urine Protein NEG (NEG-TRACE)
[2022-02-17 21:33] LABS: HCG Quantitative < 2 mIU/mL
--- NOTE | 2022-02-17 22:13 | ED.CHESTPAIN ---
HPI - Chest Pain General Chief Complaint: Chest Pain Stated Complaint: palpations,chest pain Time Seen by Provider: 02/17/22 21:11 Source: patient Mode of arrival: ambulatory Limitations: no limitations History of Present Illness HPI narrative: This is a 26-year-old female who tells me she has ?thyroid issues , 10 months presenting to the emergency department with complaints of palpitations, shortness of breath times a few months, however she tells me that she had an episode of 3 thumps that she explains as her heart skipping a few beats that really scared her and prompt her to come in today. Patient tells me that when this happened she was sitting, not exerting herself, she also felt some chest discomfort and tightness. She tells me that lately she has been short of breath with exertion however not at rest. No history of DVT or PE. Not on control. Denies any long travel or sedentary lifestyle. MD complaint: chest heaviness Related Data Home Medications Medication Instructions Recorded Confirmed lorazepam 0.5 mg tablet 1 tab PO DAILY PRN 02/17/22 02/17/22 Allergies Allergy/AdvReac Type Severity Reaction Status Date / Time amoxicillin Allergy Unknown Verified 01/24/22 21:21 clavulanic acid Allergy Unknown Verified 01/24/22 21:21 [From Augmentin] ibuprofen [From Motrin] Allergy Unknown Verified 01/24/22 21:21 sulfamethoxazole Allergy Unknown Verified 01/24/22 21:21 [From Bactrim] trimethoprim [From Bactrim] Allergy Unknown Verified 01/24/22 21:21 Review of Systems Review of Systems: Constitutional : No Weight loss, No Fever, No Chills, No Fatigue, No Malaise ENT/Mouth : No sore throat, No Rhinorrhea Eyes: No Eye Pain, No Swelling, No Redness Cardiovascular : + Chest Pain, + SOB, + Dyspnea on Exertion, No Orthopnea, No Edema, No Palpitations Respiratory : No Cough, No Sputum, No Wheezing Gastrointestinal : No Nausea, No Vomiting, No Diarrhea, No Constipation, No abdominal Pain, No Hematochezia, No Melena Genitourinary : No Dysuria, No Urinary Frequency, No Hematuria, Musculoskeletal : No joint pain, No Myalgias, No Joint Swelling Skin : No Skin Lesions, No rash Neuro : No Weakness, No Numbness, No Dizziness, No Headache Psych : No Anxiety/Panic, No Depression All other systems reviewed and are negative Yes all other systems are reviewed and are negative [facility] Past Medical History Attestation statement: The following information was validated with the patient. Source: old records reviewed and nursing notes reviewed Medical History Eclampsia Thyroid nodule Surgical History Hx of tonsillectomy Social History Social History Alcohol intake: never Patient Tobacco Use Status: Never used Tobacco Use of substances other than those prescribed or required for medical reasons: No Advance Directives: No Advance Directives Information Provided: No Physical Exam Vital Signs: Vital Signs: Last Vital Signs Temp 99.0 F 02/18/22 00:28 Pulse 86 02/18/22 00:28 Resp 18 02/18/22 00:28 BP 107/54 L 02/18/22 00:28 Pulse Ox 99 02/18/22 00:28 BMI result Body Mass Index 36.8 VSS Appearance: Alert.? Oriented X3.? No acute distress.? Head: Normocephalic, atraumatic, no step-offs or deformities Eyes: Pupils equal, round and reactive to light.? ENT: Pharynx normal.? Neck: Normal inspection.? Neck supple.? CVS: Rapid rate regular rhythm likely sinus tachycardia Pulses normal.? Respiratory: No respiratory distress.? Breath sounds normal.? Abdomen: Soft and nontender.? Skin: Skin warm and dry.? Normal skin color.? Normal skin turgor.? Extremities: No lower extremity edema.? No calf ttp, negative darien b/l. 5/5 strength to bilateral upper and lower extremities Back: No midline tenderness, no C-spine tenderness, full range of motion, no CVA tenderness bilaterally Neuro: Oriented X 3.? No motor deficit.? No sensory deficit. CN 2-12 intact Course Reevaluation(s) Reevaluation #1: CBC within normal limits. Chemistry with no acute electrolyte abnormalities requiring intervention. TSH and free T4 do not require emergent intervention at this time. D-dimer negative. Troponin negative, EKG nonischemic unlikely that this is ACS, unlikely PE/DVT. Urine clean. Chest x-ray with no acute findings. Time: 00:07 Reevaluation #2: Pending COVID, influenza . Time: 00:21 Reevaluation #3: COVID influenza negative. Patient's history and physical examination not consistent with ACS, unlikely PE/DVT. Will have her follow-up with Cardiology. Discussed TSH value with . Comfortable with discharge home with PCP follow-up and cardiology follow-up. Time: 00:58 MDM - Chest Pain MDM Narrative Medical decision making narrative: 2199 26-year-old female presents with complaints of chest discomfort/heaviness, shortness of breath and palpitations times a few months, with 1 severe episode just prior to her arrival. PERC score negative. Patient low risk for PE/DVT Physical examination significant for rapid regular rhythm likely sinus tachycardia. Negative Darien bilaterally. Lungs clear. Patient appears comfortable no acute distress. Abdomen soft nontender nondistended. No focal neuro deficits. Plan at this time is labs, imaging, thyroid function. Medical Records Data Attestation: I reviewed the patient's medical records. Lab Data Attestation: I reviewed the patient's lab results. Result diagrams: 02/17/22 20:57 02/17/22 20:57 Labs: Lab Results 02/17/22 02/17/22 02/17/22 Range/Units 20:57 20:57 20:57 WBC 7.1 (4.8-10.8) X10*3/uL RBC 4.53 (4.20-5.50) X10*6/uL Hgb 12.5 (12.0-16.0) g/dl Hct 37.1 (37.0-47.0) % MCV 81.9 (80.0-98.0) fL MCH 27.6 (27.0-33.0) pg MCHC 33.7 (31.0-35.0) g/dl RDW 13.9 (11.0-16.0) % Plt Count 318 (160-400) X10*3/uL MPV 10.5 (9.4-12.3) fL Immature Gran % (Auto) 0.3 (0.0-0.4) % Neut % (Auto) 63.2 (45-73) % Lymph % (Auto) 26.1 (20-40) % [place] % (Auto) 8.2 (2-11) % Eos % (Auto) 1.8 (0-4) % Baso % (Auto) 0.4 (0-2) % Lymph # (Auto) 1.9 (1.2-4.9) X10*3/uL [place] # (Auto) 0.6 (0.1-1.2) X10*3/uL Eos # (Auto) 0.1 (0.0-0.4) X10*3/uL Baso # (Auto) 0.0 (0.0-0.2) X10*3/uL Abs Immat Gran (auto) 0.02 (0.00-0.03) X10*3/uL Absolute Neuts (auto) 4.5 (2.0-8.3) x10*3/uL Absolute Nucleated RBC 0.000 (0.0-0.012) X10*3/uL Nucleated RBC % (auto) 0.0 (0.0-0.2) /100WBC D-Dimer High Sensitivty NG/ML Sodium 142 (135-145) mmol/L Potassium 4.4 (3.3-5.1) mmol/L Chloride 109 H (96-108) mmol/L Carbon Dioxide 25 (22-29) mmol/L Anion Gap 12 (12-20) BUN 8 L (9-16) mg/dL Creatinine 0.95 (0.5-1.4) mg/dL Estim Creat Clear Calc 121.3 Estimated GFR > 60 Random Glucose 103 (60-115) mg/dL Calcium 9.3 (8.4-10.2) mg/dL Total Bilirubin 0.3 (0.0-1.0) mg/dL AST 31 (5-31) U/L ALT 41 H (0-31) U/L Alkaline Phosphatase 70 (39-117) U/L Troponin I High Sens < 3.5 (<3.5-17.0) ng/L B-Natriuretic Peptide < 10 (<100) pg/mL Total Protein 7.6 (6.5-8.0) g/dL Albumin 4.2 (3.5-5.0) g/dL TSH 0.23 L (0.32-4.0) uIU/mL Free T4 1.18 (0.71-1.85) ng/dL Beta HCG, Quant < 2 mIU/mL Urine Color Urine Appearance Urine pH (5.0-8.0) Ur Specific [place] (1.005-1.025) Urine Protein (NEG-TRACE) MG/DL Urine Glucose (UA) (NEG) MG/DL Urine Ketones (NEG) MG/DL Urine Blood (NEG) Urine Nitrite (NEG) Ur Leukocyte Esterase (NEG) COVID-19 ([facility]) (Negative) COVID-19 Clin Com Influenza Type A ([facility]) (Negative) Influenza Type B ([facility]) (Negative) Influenza A & B Note 02/17/22 02/17/22 02/18/22 Range/Units 21:21 22:55 00:12 WBC (4.8-10.8) X10*3/uL RBC (4.20-5.50) X10*6/uL Hgb (12.0-16.0) g/dl Hct (37.0-47.0) % MCV (80.0-98.0) fL MCH (27.0-33.0) pg MCHC (31.0-35.0) g/dl RDW (11.0-16.0) % Plt Count (160-400) X10*3/uL MPV (9.4-12.3) fL Immature Gran % (Auto) (0.0-0.4) % Neut % (Auto) (45-73) % Lymph % (Auto) (20-40) % [place] % (Auto) (2-11) % Eos % (Auto) (0-4) % Baso % (Auto) (0-2) % Lymph # (Auto) (1.2-4.9) X10*3/uL [place] # (Auto) (0.1-1.2) X10*3/uL Eos # (Auto) (0.0-0.4) X10*3/uL Baso # (Auto) (0.0-0.2) X10*3/uL Abs Immat Gran (auto) (0.00-0.03) X10*3/uL Absolute Neuts (auto) (2.0-8.3) x10*3/uL Absolute Nucleated RBC (0.0-0.012) X10*3/uL Nucleated RBC % (auto) (0.0-0.2) /100WBC D-Dimer High Sensitivty 176 NG/ML Sodium (135-145) mmol/L Potassium (3.3-5.1) mmol/L Chloride (96-108) mmol/L Carbon Dioxide (22-29) mmol/L Anion Gap (12-20) BUN (9-16) mg/dL Creatinine (0.5-1.4) mg/dL Estim Creat Clear Calc Estimated GFR Random Glucose (60-115) mg/dL Calcium (8.4-10.2) mg/dL Total Bilirubin (0.0-1.0) mg/dL AST (5-31) U/L ALT (0-31) U/L Alkaline Phosphatase (39-117) U/L Troponin I High Sens (<3.5-17.0) ng/L B-Natriuretic Peptide (<100) pg/mL Total Protein (6.5-8.0) g/dL Albumin (3.5-5.0) g/dL TSH (0.32-4.0) uIU/mL Free T4 (0.71-1.85) ng/dL Beta HCG, Quant mIU/mL Urine Color YELLOW Urine Appearance CLEAR Urine pH 6.0 (5.0-8.0) Ur Specific [place] <= 1.005 (1.005-1.025) Urine Protein NEG (NEG-TRACE) MG/DL Urine Glucose (UA) NEG (NEG) MG/DL Urine Ketones NEG (NEG) MG/DL Urine Blood NEG (NEG) Urine Nitrite NEG (NEG) Ur Leukocyte Esterase NEG (NEG) COVID-19 ([facility]) (Negative) COVID-19 Clin Com Influenza Type A ([facility]) Negative (Negative) Influenza Type B ([facility]) Negative (Negative) Influenza A & B Note See Note 02/18/22 Range/Units 00:12 WBC (4.8-10.8) X10*3/uL RBC (4.20-5.50) X10*6/uL Hgb (12.0-16.0) g/dl Hct (37.0-47.0) % MCV (80.0-98.0) fL MCH (27.0-33.0) pg MCHC (31.0-35.0) g/dl RDW (11.0-16.0) % Plt Count (160-400) X10*3/uL MPV (9.4-12.3) fL Immature Gran % (Auto) (0.0-0.4) % Neut % (Auto) (45-73) % Lymph % (Auto) (20-40) % [place] % (Auto) (2-11) % Eos % (Auto) (0-4) % Baso % (Auto) (0-2) % Lymph # (Auto) (1.2-4.9) X10*3/uL [place] # (Auto) (0.1-1.2) X10*3/uL Eos # (Auto) (0.0-0.4) X10*3/uL Baso # (Auto) (0.0-0.2) X10*3/uL Abs Immat Gran (auto) (0.00-0.03) X10*3/uL Absolute Neuts (auto) (2.0-8.3) x10*3/uL Absolute Nucleated RBC (0.0-0.012) X10*3/uL Nucleated RBC % (auto) (0.0-0.2) /100WBC D-Dimer High Sensitivty NG/ML Sodium (135-145) mmol/L Potassium (3.3-5.1) mmol/L Chloride (96-108) mmol/L Carbon Dioxide (22-29) mmol/L Anion Gap (12-20) BUN (9-16) mg/dL Creatinine (0.5-1.4) mg/dL Estim Creat Clear Calc Estimated GFR Random Glucose (60-115) mg/dL Calcium (8.4-10.2) mg/dL Total Bilirubin (0.0-1.0) mg/dL AST (5-31) U/L ALT (0-31) U/L Alkaline Phosphatase (39-117) U/L Troponin I High Sens (<3.5-17.0) ng/L B-Natriuretic Peptide (<100) pg/mL Total Protein (6.5-8.0) g/dL Albumin (3.5-5.0) g/dL TSH (0.32-4.0) uIU/mL Free T4 (0.71-1.85) ng/dL Beta HCG, Quant mIU/mL Urine Color Urine Appearance Urine pH (5.0-8.0) Ur Specific [place] (1.005-1.025) Urine Protein (NEG-TRACE) MG/DL Urine Glucose (UA) (NEG) MG/DL Urine Ketones (NEG) MG/DL Urine Blood (NEG) Urine Nitrite (NEG) Ur Leukocyte Esterase (NEG) COVID-19 ([facility]) Negative (Negative) COVID-19 Clin Com See Note Influenza Type A ([facility]) (Negative) Influenza Type B ([facility]) (Negative) Influenza A & B Note Critical Care Time Critical Care Time Critical Care Time: No Discharge Plan Discharge Clinical Impression: Chest pain, Palpitations Patient Disposition: Home, Self-Care Instructions: Chest Pain (ED), Heart Palpitations (ED) Additional Instructions: Take your medications as prescribed. If you were prescribed antibiotics today, it is important that you take your medication to their entirety, do not skip any doses, do not finish them early. Follow-up with your primary care provider this week. You should follow up with Cardiology as you may require Holter monitor. Please follow-up with endocrinology. Return to the emergency department with new or worsening symptoms. Such as fevers, chills, chest pain, shortness of breath, nausea, vomiting, dizziness, headache, vision changes, lethargy In case of emergency call 911 You tested negative for flu and COVID. Prescriptions: No Action lorazepam 0.5 mg tablet 1 tab PO DAILY PRN (Reason: Anxiety) 0RF Referrals: Juan A Linda MD [Primary Care Provider] - 2 days Kaiser Flanagan MD [Physician] - 1 week Lee Lan MD [Physician] - 2 weeks Stand Alone Forms: Work/School Release
[2022-02-17 22:47] VITALS: BP 116/59; PULSE 84; RESP 14; O2SAT 100
[2022-02-17 23:07] LABS: D Dimer High Sensitivity 176 NG/ML
[2022-02-17 23:12] LABS: B Type Natriuretic Peptide < 10 pg/mL (<100)
[2022-02-17 23:26] LABS: TSH reflex Free T4 0.23 uIU/mL (0.32-4.0)
[2022-02-18] LABS: Free T4 (Free Thyroxine) 1.18 ng/dL (0.71-1.85)
[2022-02-18 00:28] VITALS: BP 107/54; PULSE 86; RESP 18; TEMP 37.2; O2SAT 99
[2022-02-18 00:32] LABS: COVID-19 Test Negative (Negative); IDNOW Serial# 16C4AD1C; Influenza A Negative (Negative); Influenza B2 Negative (Negative)
[2022-02-18 01:12] VITALS: BP 104/50; PULSE 86; RESP 17; TEMP 36.6; O2SAT 98
== END 2022-02-18 01:16 | disposition home or self-care (01) ==
PROVIDERS: Physician Assistant; Student in an Organized Health Care Education/Training Program; Emergency Provider Emergency Medicine Emergency Medical Services; PCP Family Medicine
DX: R00.2 Palpitations (principal); R07.9 Chest pain, unspecified; R06.02 Shortness of breath; E04.1 Nontoxic single thyroid nodule; Z20.822 Contact with and (suspected) exposure to COVID-19
CPT/HCPCS: 36415; 71045; 80053; 81003; 83880; 84439; 84443; 84484; 84702; 85025; 85379; 87502; 87635; 93005; 99283; 99285

== ENCOUNTER 2022-05-04 17:14 | Emergency (ER) | payer OTHER, SELFPAY ==
--- NOTE | ~2022-05-04 | XR_ITS ---
EXAMINATION: XR CHEST CLINICAL INFORMATION: Palpitations. Chest discomfort. COMPARISON: Chest x-ray 02/17/2022 TECHNIQUE: Frontal view of the chest was obtained. 6:15 PM FINDINGS: No significant abnormality is noted involving the heart, lungs, mediastinum, bony thorax or soft tissues. XR/XR chest 1V IMPRESSION: Unremarkable examination.
[2022-05-04 17:42] VITALS: BP 111/65; PULSE 76; RESP 18; TEMP 36.8; O2SAT 100; BMI 35.2
--- NOTE | 2022-05-04 17:47 | ECG_ITS ---
Test Reason : palpatations Blood Pressure : / mmHG Vent. Rate : 089 BPM Atrial Rate : 089 BPM P-R Int : 142 ms QRS Dur : 090 ms QT Int : 384 ms P-R-T Axes : 055 -14 022 degrees QTc Int : 467 ms Normal sinus rhythm Cannot rule out Anterior infarct , age undetermined Abnormal ECG When compared with ECG of 17-FEB-2022 20:39, Questionable change in QRS axis Referred By: Generic ED Physician Electronically Signed By:ASHISH CHATTERJEE MD
[2022-05-04 18:14] LABS: MANUAL DIFF FLAG NO
[2022-05-04 18:17] LABS: Appearance Urine CLEAR; Color Urine STRAW; Glucose Urine UA NEG (NEG); Leukocyte Esterase Urine TRACE (NEG); Nitrite Urine NEG (NEG); PH 6.5 (5.0-8.0); Specific Gravity - Urine <= 1.005 (1.005-1.025); Urine Blood NEG (NEG); Urine Ketones NEG (NEG); Urine Protein NEG (NEG-TRACE)
[2022-05-04 18:19] LABS: UPreg QC Valid YES; Urine Pregnancy NEGATIVE (NEGATIVE)
[2022-05-04 18:22] LABS: INTERNATIONAL NORM RATIO 1.2 (0.9-1.1)
[2022-05-04 18:35] LABS: Anion Gap 13 (12-20); Blood Urea Nitrogen 5 mg/dL (9-16); Calcium 8.8 mg/dL (8.4-10.2); Carbon Dioxide 24 mmol/L (22-29); Chloride 108 mmol/L (96-108); Creatinine Clr Calc Pharmacy 136.3; Estimated Glomerular Filt Rate > 60; Glucose Random 95 mg/dL (60-115); Potassium 4.2 mmol/L (3.3-5.1); Sodium 141 mmol/L (135-145)
[2022-05-04 18:39] LABS: Basophils Percent Auto 0.4 % (0-2); Eosinophils Absolute Auto 0.1 X10*3/uL (0.0-0.4); Eosinophils Percent Auto 1.3 % (0-4); Hematocrit 36.5 % (37.0-47.0); Hemoglobin 12.1 g/dl (12.0-16.0); Imm Gran Abs Auto 0.04 X10*3/uL (0.00-0.03); Imm Gran Pct Auto 0.6 % (0.0-0.4); Lymphocytes Absolute Auto 1.9 X10*3/uL (1.2-4.9); Lymphocytes Percent Auto 27.9 % (20-40); Mean Corpuscular HGB Conc 33.2 g/dl (31.0-35.0); Mean Corpuscular Hemoglobin 27.9 pg (27.0-33.0); Mean Corpuscular Volume 84.3 fL (80.0-98.0); Mean Platelet Volume 11.1 fL (9.4-12.3); Monocytes Absolute Auto 0.6 X10*3/uL (0.1-1.2); Monocytes Percent Auto 8.8 % (2-11); Neutrophils Absolute Auto 4.2 x10*3/uL (2.0-8.3); Platelet Count 301 X10*3/uL (160-400); Red Blood Count 4.33 X10*6/uL (4.20-5.50); White Blood Count 6.8 X10*3/uL (4.8-10.8)
[2022-05-04 18:43] LABS: Troponin-I High Sensitivity < 3.5 ng/L (<3.5-17.0)
[2022-05-04 18:49] LABS: RBC Urine 0 /HPF (0)
[2022-05-04 21:51] VITALS: BP 117/61; PULSE 72; RESP 19; TEMP 36.9; O2SAT 100
--- NOTE | 2022-05-04 22:13 | ED.ARRPALP ---
HPI - Arrhythmia/Palpitations General Chief Complaint: Arrhythmia/Palpitations Stated Complaint: palpatations Time Seen by Provider: 05/04/22 22:02 Source: patient Mode of arrival: ambulatory Limitations: no limitations History of Present Illness HPI narrative: This is 27 years old female presented to the emergency department with a chief complaint of palpitation, no syncope, no fever. The patient has history of hyperthyroidism. She is otherwise healthy. MD complaint: rapid heart beat and heart racing Onset (ago): day(s) (2) Duration: constant Severity: mild Context: occurred during rest Associated symptoms: denies other symptoms and syncope Related Data Home Medications Medication Instructions Recorded Confirmed lorazepam 0.5 mg tablet 1 tab PO DAILY PRN Anxiety 02/17/22 02/17/22 Allergies Allergy/AdvReac Type Severity Reaction Status Date / Time amoxicillin Allergy Unknown Verified 05/04/22 17:46 clavulanic acid Allergy Unknown Verified 05/04/22 17:46 [From Augmentin] ibuprofen [From Motrin] Allergy Unknown Verified 05/04/22 17:46 sulfamethoxazole Allergy Unknown Verified 05/04/22 17:46 [From Bactrim] trimethoprim [From Bactrim] Allergy Unknown Verified 05/04/22 17:46 Review of Systems Constitutional: Constitutional: Reports no additional constitutional complaints ENT: Denies vertigo and Denies dizziness Cardiovascular: Cardiovascular: Denies lightheadedness and Denies Loss of Consciousness Respiratory: Respiratory: Reports no additional respiratory complaints Gastrointestinal: Gastrointestinal: Reports no additional gastrointestinal complaints Musculoskeletal: Musculoskeletal: Reports no additional musculoskeletal complaints Neurologic: Denies vertigo and Denies dizziness PMFSH Past Medical History Medical History Eclampsia Thyroid nodule Surgical History Hx of tonsillectomy Social History Social History Alcohol intake: never Patient Tobacco Use Status: Never used Tobacco Advance Directives: No Advance Directives Information Provided: No Physical Exam Vital Signs: Vital Signs: Last Vital Signs Temp 98.5 F 05/04/22 21:51 Pulse 72 05/04/22 21:51 Resp 19 05/04/22 21:51 BP 117/61 05/04/22 21:51 Pulse Ox 100 05/04/22 21:51 O2 Del Method 05/04/22 21:51 BMI result Body Mass Index 35.2 Const: General: cooperative and anxious Nutritional Appearance: average body habitus Orientation/consciousness: patient oriented x3 HEENT: Head: Yes normal to inspection Face and sinus: Yes normal facial exam Mouth: Normal oral and palatal mucosa present Neck: Neck: Yes normal visual inspection and Yes full ROM Thyroid: Thyroid normal Chest: Chest palpation & inspection: normal inspection of the chest Resp: Effort & Inspection: normal respiratory effort Auscultation: clear to auscultation bilaterally Cardio: Jugular venous distension: no JVD Rate: regular rate Rhythm: regular rhythm GI: Inspection: Yes normal to inspection Palpation (GI): Soft to palpation, not firm, nontender and no guarding Auscultation: normal bowel sounds Skin: General skin exam: no rashes or lesions noted Neuro: General: patient oriented x3 Extrem: General: Yes normal to inspection, Yes full ROM and Yes capillary refill normal Course Reevaluation(s) Reevaluation #1: Patient is feeling much better this time, I performed a bedside cardiac echo no pericardial effusion good wall motion MDM - Arrhythmia/Palpitations MDM Narrative Medical decision making narrative: Patient presented with palpitation EKG labs within normal limit there is no syncope no near syncopal disorder. The I think it is reasonable to discharge the patient home with follow-up with PCP she has history of hyperthyroidism TSH is mildly suppressed these symptoms could be related to the hyperthyroidism . 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 Lab Data Result diagrams: 05/04/22 18:09 05/04/22 18:09 Labs: Lab Results 05/04/22 05/04/22 05/04/22 Range/Units 18:09 18:09 18:09 WBC 6.8 (4.8-10.8) X10*3/uL RBC 4.33 (4.20-5.50) X10*6/uL Hgb 12.1 (12.0-16.0) g/dl Hct 36.5 L (37.0-47.0) % MCV 84.3 (80.0-98.0) fL MCH 27.9 (27.0-33.0) pg MCHC 33.2 (31.0-35.0) g/dl RDW 14.0 (11.0-16.0) % Plt Count 301 (160-400) X10*3/uL MPV 11.1 (9.4-12.3) fL Immature Gran % (Auto) 0.6 H (0.0-0.4) % Neut % (Auto) 61.0 (45-73) % Lymph % (Auto) 27.9 (20-40) % [place] % (Auto) 8.8 (2-11) % Eos % (Auto) 1.3 (0-4) % Baso % (Auto) 0.4 (0-2) % Lymph # (Auto) 1.9 (1.2-4.9) X10*3/uL [place] # (Auto) 0.6 (0.1-1.2) X10*3/uL Eos # (Auto) 0.1 (0.0-0.4) X10*3/uL Baso # (Auto) 0.0 (0.0-0.2) X10*3/uL Abs Immat Gran (auto) 0.04 H (0.00-0.03) X10*3/uL Absolute Neuts (auto) 4.2 (2.0-8.3) x10*3/uL Absolute Nucleated RBC 0.000 (0.0-0.012) X10*3/uL Nucleated RBC % (auto) 0.0 (0.0-0.2) /100WBC PT (10.0-13.1) SEC INR (0.9-1.1) Sodium 141 (135-145) mmol/L Potassium 4.2 (3.3-5.1) mmol/L Chloride 108 (96-108) mmol/L Carbon Dioxide 24 (22-29) mmol/L Anion Gap 13 (12-20) BUN 5 L (9-16) mg/dL Creatinine 0.82 (0.5-1.4) mg/dL Estim Creat Clear Calc 136.3 Estimated GFR > 60 Random Glucose 95 (60-115) mg/dL Calcium 8.8 (8.4-10.2) mg/dL Troponin I High Sens < 3.5 (<3.5-17.0) ng/L TSH 0.20 L (0.32-4.0) uIU/mL Urine Color Urine Appearance Urine pH (5.0-8.0) Ur Specific [place] (1.005-1.025) Urine Protein (NEG-TRACE) MG/DL Urine Glucose (UA) (NEG) MG/DL Urine Ketones (NEG) MG/DL Urine Blood (NEG) Urine Nitrite (NEG) Ur Leukocyte Esterase (NEG) Urine RBC (0) /HPF Urine WBC (0-4) /HPF Ur Squamous Epith Cells /LPF Urine Bacteria /LPF Urine Test (NEGATIVE) 05/04/22 05/04/22 05/04/22 Range/Units 18:09 18:09 18:09 WBC (4.8-10.8) X10*3/uL RBC (4.20-5.50) X10*6/uL Hgb (12.0-16.0) g/dl Hct (37.0-47.0) % MCV (80.0-98.0) fL MCH (27.0-33.0) pg MCHC (31.0-35.0) g/dl RDW (11.0-16.0) % Plt Count (160-400) X10*3/uL MPV (9.4-12.3) fL Immature Gran % (Auto) (0.0-0.4) % Neut % (Auto) (45-73) % Lymph % (Auto) (20-40) % [place] % (Auto) (2-11) % Eos % (Auto) (0-4) % Baso % (Auto) (0-2) % Lymph # (Auto) (1.2-4.9) X10*3/uL [place] # (Auto) (0.1-1.2) X10*3/uL Eos # (Auto) (0.0-0.4) X10*3/uL Baso # (Auto) (0.0-0.2) X10*3/uL Abs Immat Gran (auto) (0.00-0.03) X10*3/uL Absolute Neuts (auto) (2.0-8.3) x10*3/uL Absolute Nucleated RBC (0.0-0.012) X10*3/uL Nucleated RBC % (auto) (0.0-0.2) /100WBC PT 14.0 H (10.0-13.1) SEC INR 1.2 H (0.9-1.1) Sodium (135-145) mmol/L Potassium (3.3-5.1) mmol/L Chloride (96-108) mmol/L Carbon Dioxide (22-29) mmol/L Anion Gap (12-20) BUN (9-16) mg/dL Creatinine (0.5-1.4) mg/dL Estim Creat Clear Calc Estimated GFR Random Glucose (60-115) mg/dL Calcium (8.4-10.2) mg/dL Troponin I High Sens (<3.5-17.0) ng/L TSH (0.32-4.0) uIU/mL Urine Color STRAW Urine Appearance CLEAR Urine pH 6.5 (5.0-8.0) Ur Specific [place] <= 1.005 (1.005-1.025) Urine Protein NEG (NEG-TRACE) MG/DL Urine Glucose (UA) NEG (NEG) MG/DL Urine Ketones NEG (NEG) MG/DL Urine Blood NEG (NEG) Urine Nitrite NEG (NEG) Ur Leukocyte Esterase TRACE H (NEG) Urine RBC 0 (0) /HPF Urine WBC 1-4 (0-4) /HPF Ur Squamous Epith Cells NONE /LPF Urine Bacteria NONE /LPF Urine Test NEGATIVE (NEGATIVE) ECG Data Pacemaker model: Electrocardiogram shows normal sinus rhythm no ST-T changes Discharge Plan Discharge Clinical Impression: Palpitations Patient Disposition: Home, Self-Care Instructions: Heart Palpitations (DC) Additional Instructions: Follow-up with your primary care physician return if you worse any concern Prescriptions: No Action lorazepam 0.5 mg tablet 1 tab PO DAILY PRN (Reason: Anxiety) Referrals: Juan A Linda MD [Primary Care Provider] - 3 days
== END 2022-05-04 23:39 | disposition home or self-care (01) ==
PROVIDERS: Emergency Provider Emergency Medicine; PCP Family Medicine
DX: R00.2 Palpitations (principal); F41.9 Anxiety disorder, unspecified; Z79.899 Other long term (current) drug therapy
CPT/HCPCS: 36415; 71045; 80048; 81001; 81025; 84443; 84484; 85025; 85610; 93005; 99284

== ENCOUNTER 2022-06-01 05:16 | Emergency (ER) | payer OTHER, SELFPAY ==
--- NOTE | 2022-06-01 05:35 | ECG_ITS ---
Test Reason : CHEST PAIN Blood Pressure : / mmHG Vent. Rate : 080 BPM Atrial Rate : 080 BPM P-R Int : 146 ms QRS Dur : 092 ms QT Int : 420 ms P-R-T Axes : 053 -11 020 degrees QTc Int : 484 ms Normal sinus rhythm Prolonged QT Abnormal ECG When compared with ECG of 04-MAY-2022 17:49, No significant change was found Referred By: Generic ED Physician Electronically Signed By:MISTY VALLE
[2022-06-01 05:41] VITALS: BP 131/80; PULSE 92; RESP 16; TEMP 36.8; O2SAT 100; BMI 35.7
[2022-06-01 05:50] LABS: Basophils Percent Auto 0.5 % (0-2); Eosinophils Absolute Auto 0.1 X10*3/uL (0.0-0.4); Eosinophils Percent Auto 1.3 % (0-4); Hematocrit 35.9 % (37.0-47.0); Imm Gran Abs Auto 0.02 X10*3/uL (0.00-0.03); Imm Gran Pct Auto 0.3 % (0.0-0.4); Lymphocytes Absolute Auto 3.1 X10*3/uL (1.2-4.9); Lymphocytes Percent Auto 40.5 % (20-40); MANUAL DIFF FLAG NO; Mean Corpuscular HGB Conc 33.4 g/dl (31.0-35.0); Mean Corpuscular Hemoglobin 27.8 pg (27.0-33.0); Mean Corpuscular Volume 83.3 fL (80.0-98.0); Mean Platelet Volume 10.7 fL (9.4-12.3); Monocytes Absolute Auto 0.6 X10*3/uL (0.1-1.2); Neutrophils Absolute Auto 3.8 x10*3/uL (2.0-8.3); Neutrophils Percent Auto 49.4 % (45-73); Platelet Count 285 X10*3/uL (160-400); Red Blood Count 4.31 X10*6/uL (4.20-5.50); Red Cell Distribution Width 13.5 % (11.0-16.0); White Blood Count 7.7 X10*3/uL (4.8-10.8)
[2022-06-01 06:03] LABS: Anion Gap 15 (12-20); Blood Urea Nitrogen 6 mg/dL (9-16); Calcium 8.9 mg/dL (8.4-10.2); Carbon Dioxide 25 mmol/L (22-29); Chloride 106 mmol/L (96-108); Creatinine Clr Calc Pharmacy 142.5; Estimated Glomerular Filt Rate > 60; Glucose Random 92 mg/dL (60-115); Potassium 3.9 mmol/L (3.3-5.1); Sodium 142 mmol/L (135-145)
[2022-06-01 06:09] LABS: Troponin-I High Sensitivity < 3.5 ng/L (<3.5-17.0)
--- NOTE | 2022-06-01 08:09 | ED.GENADULT ---
HPI - General Adult General Chief complaint: Extremity Problem Stated complaint: chest pain, L leg pain (clot?), nausea, abd pain Time Seen by Provider: 06/01/22 07:25 Source: patient Mode of arrival: ambulatory History of Present Illness HPI narrative: 27-year-old female who presents with a remote history of preeclampsia 1 year ago while she was as well as stating that she has hyperthyroid but is not currently receiving any medications and the plan is for ?taking it out? as per the patient. She otherwise denies any diarrhea but states she has been having feelings of flushing and occasional palpitations. She denies experiencing the chest pain or the palpitations at this time. In addition, patient states that she has had left lower leg ?ball at the back of her knee? and feeling as though her leg has been ?swollen?. She denies any smoking, control, recent travel. Related Data Home Medications Medication Instructions Recorded Confirmed lorazepam 0.5 mg tablet 1 tab PO DAILY PRN Anxiety 02/17/22 02/17/22 Previous Rx's Medication Instructions Recorded nitrofurantoin 100 mg PO Q12H 5 days #10 caps 06/01/22 monohydrate/macrocrystals 100 mg capsule (Macrobid) Allergies Allergy/AdvReac Type Severity Reaction Status Date / Time amoxicillin Allergy Unknown Verified 05/04/22 17:46 clavulanic acid Allergy Unknown Verified 05/04/22 17:46 [From Augmentin] ibuprofen [From Motrin] Allergy Unknown Verified 05/04/22 17:46 sulfamethoxazole Allergy Unknown Verified 05/04/22 17:46 [From Bactrim] trimethoprim [From Bactrim] Allergy Unknown Verified 05/04/22 17:46 Review of Systems Review of Systems: Pertinent positives and negatives as stated in HPI 10 point review of systems is otherwise negative. PMFSH Past Medical History Source: nursing notes reviewed Medical History Eclampsia Thyroid nodule Surgical History Hx of tonsillectomy Social History Social History Alcohol intake: never Patient Tobacco Use Status: Never used Tobacco Use of substances other than those prescribed or required for medical reasons: No Advance Directives: No Advance Directives Information Provided: Yes Physical Exam ED Vital Signs: Vital Signs - 24 hr 06/01/22 05:41 06/01/22 08:49 Temperature 98.3 F Pulse Rate 92 72 Respiratory Rate 16 18 Blood Pressure 131/80 106/59 L Pulse Oximetry 100 99 Oxygen Delivery Method Room Air Room Air BMI result Body Mass Index 35.7 VITAL SIGNS: Reviewed. GENERAL: Well developed, well nourished, in no acute distress. HEAD: Normocephalic/atraumatic EYES: PERRLA, EOMI EARS: Ext canals without abnormality OROPHARYNX: no oral lesions noted, posterior pharynx clear LUNGS: Normal breath sounds. No adventitious sounds or accessory muscle use. SpO2<100> CARDIOVASCULAR: Regular rate and rhythm without noted murmurs ABDOMEN: Soft, non-tender, non-distended with bowel sounds. MUSCULOSKELETAL: No tenderness, deformities, or effusions noted on gross inspection. EXTREMITIES: No cyanosis, clubbing or edema; LEFT LOWER EXTREMITY: On standing, patient does have small palpable mass at the popliteal fossa without pain/erythema/induration SKIN: Inspection of the skin reveals no rashes NEUROLOGIC: Alert and oriented x 4. Strength and sensation to light touch were grossly intact x 4. Course Course Course Narrative: 27-year-old female with history and clinical presentation consistent with possible acid reflux as this is an atypical type chest pain in his completely resolved in on review of all investigations there are no acute findings. Suspect that left lower extremity is associated with a Peñaloza cyst that does not appear to be ruptured or infected at this time. Low clinical suspicion for PE. Review of all investigations demonstrates of a UTI, COVID testing is negative, and D-dimer is within normal limits. All results and findings discussed with the patient at bedside she is otherwise discharged home in stable condition. Medical Decision Making Lab Data Result diagrams: 06/01/22 05:44 06/01/22 05:44 Labs: Lab Results 06/01/22 06/01/22 06/01/22 Range/Units 05:44 05:44 05:44 WBC 7.7 (4.8-10.8) X10*3/uL RBC 4.31 (4.20-5.50) X10*6/uL Hgb 12.0 (12.0-16.0) g/dl Hct 35.9 L (37.0-47.0) % MCV 83.3 (80.0-98.0) fL MCH 27.8 (27.0-33.0) pg MCHC 33.4 (31.0-35.0) g/dl RDW 13.5 (11.0-16.0) % Plt Count 285 (160-400) X10*3/uL MPV 10.7 (9.4-12.3) fL Immature Gran % (Auto) 0.3 (0.0-0.4) % Neut % (Auto) 49.4 (45-73) % Lymph % (Auto) 40.5 H (20-40) % [place] % (Auto) 8.0 (2-11) % Eos % (Auto) 1.3 (0-4) % Baso % (Auto) 0.5 (0-2) % Lymph # (Auto) 3.1 (1.2-4.9) X10*3/uL [place] # (Auto) 0.6 (0.1-1.2) X10*3/uL Eos # (Auto) 0.1 (0.0-0.4) X10*3/uL Baso # (Auto) 0.0 (0.0-0.2) X10*3/uL Abs Immat Gran (auto) 0.02 (0.00-0.03) X10*3/uL Absolute Neuts (auto) 3.8 (2.0-8.3) x10*3/uL Absolute Nucleated RBC 0.000 (0.0-0.012) X10*3/uL Nucleated RBC % (auto) 0.0 (0.0-0.2) /100WBC D-Dimer High Sensitivty NG/ML Sodium 142 (135-145) mmol/L Potassium 3.9 (3.3-5.1) mmol/L Chloride 106 (96-108) mmol/L Carbon Dioxide 25 (22-29) mmol/L Anion Gap 15 (12-20) BUN 6 L (9-16) mg/dL Creatinine 0.79 (0.5-1.4) mg/dL Estim Creat Clear Calc 142.5 Estimated GFR > 60 Random Glucose 92 (60-115) mg/dL Calcium 8.9 (8.4-10.2) mg/dL Troponin I High Sens < 3.5 (<3.5-17.0) ng/L Urine Color Urine Appearance Urine pH (5.0-8.0) Ur Specific [place] (1.005-1.025) Urine Protein (NEG-TRACE) MG/DL Urine Glucose (UA) (NEG) MG/DL Urine Ketones (NEG) MG/DL Urine Blood (NEG) Urine Nitrite (NEG) Ur Leukocyte Esterase (NEG) Urine RBC (0) /HPF Urine WBC (0-4) /HPF Ur Squamous Epith Cells /LPF Urine Bacteria /LPF Urine Mucus /LPF Urine Test (NEGATIVE) COVID-19 ([place]) (Negative) COVID-19 Clin Com 06/01/22 06/01/22 06/01/22 Range/Units 07:59 07:59 09:43 WBC (4.8-10.8) X10*3/uL RBC (4.20-5.50) X10*6/uL Hgb (12.0-16.0) g/dl Hct (37.0-47.0) % MCV (80.0-98.0) fL MCH (27.0-33.0) pg MCHC (31.0-35.0) g/dl RDW (11.0-16.0) % Plt Count (160-400) X10*3/uL MPV (9.4-12.3) fL Immature Gran % (Auto) (0.0-0.4) % Neut % (Auto) (45-73) % Lymph % (Auto) (20-40) % [place] % (Auto) (2-11) % Eos % (Auto) (0-4) % Baso % (Auto) (0-2) % Lymph # (Auto) (1.2-4.9) X10*3/uL [place] # (Auto) (0.1-1.2) X10*3/uL Eos # (Auto) (0.0-0.4) X10*3/uL Baso # (Auto) (0.0-0.2) X10*3/uL Abs Immat Gran (auto) (0.00-0.03) X10*3/uL Absolute Neuts (auto) (2.0-8.3) x10*3/uL Absolute Nucleated RBC (0.0-0.012) X10*3/uL Nucleated RBC % (auto) (0.0-0.2) /100WBC D-Dimer High Sensitivty NG/ML Sodium (135-145) mmol/L Potassium (3.3-5.1) mmol/L Chloride (96-108) mmol/L Carbon Dioxide (22-29) mmol/L Anion Gap (12-20) BUN (9-16) mg/dL Creatinine (0.5-1.4) mg/dL Estim Creat Clear Calc Estimated GFR Random Glucose (60-115) mg/dL Calcium (8.4-10.2) mg/dL Troponin I High Sens (<3.5-17.0) ng/L Urine Color YELLOW Urine Appearance CLOUDY Urine pH 6.0 (5.0-8.0) Ur Specific [place] 1.020 (1.005-1.025) Urine Protein NEG (NEG-TRACE) MG/DL Urine Glucose (UA) NEG (NEG) MG/DL Urine Ketones NEG (NEG) MG/DL Urine Blood NEG (NEG) Urine Nitrite NEG (NEG) Ur Leukocyte Esterase 1+ H (NEG) Urine RBC 0-2 (0) /HPF Urine WBC 5-9 H (0-4) /HPF Ur Squamous Epith Cells 3+ /LPF Urine Bacteria TRACE /LPF Urine Mucus 1+ /LPF Urine Test NEGATIVE (NEGATIVE) COVID-19 ([place]) Negative (Negative) COVID-19 Clin Com See Note 06/01/22 Range/Units 09:49 WBC (4.8-10.8) X10*3/uL RBC (4.20-5.50) X10*6/uL Hgb (12.0-16.0) g/dl Hct (37.0-47.0) % MCV (80.0-98.0) fL MCH (27.0-33.0) pg MCHC (31.0-35.0) g/dl RDW (11.0-16.0) % Plt Count (160-400) X10*3/uL MPV (9.4-12.3) fL Immature Gran % (Auto) (0.0-0.4) % Neut % (Auto) (45-73) % Lymph % (Auto) (20-40) % [place] % (Auto) (2-11) % Eos % (Auto) (0-4) % Baso % (Auto) (0-2) % Lymph # (Auto) (1.2-4.9) X10*3/uL [place] # (Auto) (0.1-1.2) X10*3/uL Eos # (Auto) (0.0-0.4) X10*3/uL Baso # (Auto) (0.0-0.2) X10*3/uL Abs Immat Gran (auto) (0.00-0.03) X10*3/uL Absolute Neuts (auto) (2.0-8.3) x10*3/uL Absolute Nucleated RBC (0.0-0.012) X10*3/uL Nucleated RBC % (auto) (0.0-0.2) /100WBC D-Dimer High Sensitivty 240 NG/ML Sodium (135-145) mmol/L Potassium (3.3-5.1) mmol/L Chloride (96-108) mmol/L Carbon Dioxide (22-29) mmol/L Anion Gap (12-20) BUN (9-16) mg/dL Creatinine (0.5-1.4) mg/dL Estim Creat Clear Calc Estimated GFR Random Glucose (60-115) mg/dL Calcium (8.4-10.2) mg/dL Troponin I High Sens (<3.5-17.0) ng/L Urine Color Urine Appearance Urine pH (5.0-8.0) Ur Specific [place] (1.005-1.025) Urine Protein (NEG-TRACE) MG/DL Urine Glucose (UA) (NEG) MG/DL Urine Ketones (NEG) MG/DL Urine Blood (NEG) Urine Nitrite (NEG) Ur Leukocyte Esterase (NEG) Urine RBC (0) /HPF Urine WBC (0-4) /HPF Ur Squamous Epith Cells /LPF Urine Bacteria /LPF Urine Mucus /LPF Urine Test (NEGATIVE) COVID-19 ([place]) (Negative) COVID-19 Clin Com ECG Data Attestation: I personally reviewed and interpreted this ECG as follows: Prior ECG tracings: available for review Interpretation: Normal sinus rhythm, HR-80, no STEMI, [place]/QRS/QTC are within normal limits. Discharge Plan Discharge Clinical Impression: UTI (urinary tract infection), Peñaloza cyst Patient Disposition: Home, Self-Care Instructions: Urinary Tract Infection in Women (ED), [place] Cyst (ED) Additional Instructions: 1. Complete the entire course of antibiotics as ordered. 2. Your COVID 19 testing was negative and the treatment for Peñaloza cyst is using [id number] Tylenol/ibuprofen and then follow-up with your primary care provider in the next 1-2 days. Return to the ER for worsening symptoms. Prescriptions: New nitrofurantoin monohyd/m-cryst [Macrobid] 100 mg capsule 100 mg PO Q12H 5 Days Qty: 10 0RF Rx Instructions: must administer with a meal/food No Action lorazepam 0.5 mg tablet 1 tab PO DAILY PRN (Reason: Anxiety) Referrals: Juan A Linda MD [Primary Care Provider] -
[2022-06-01 08:11] LABS: Appearance Urine CLOUDY; Color Urine YELLOW; Glucose Urine UA NEG (NEG); Leukocyte Esterase Urine 1+ (NEG); Nitrite Urine NEG (NEG); UACC Culture Trigger YES; Urine Blood NEG (NEG); Urine Ketones NEG (NEG); Urine Protein NEG (NEG-TRACE)
[2022-06-01 08:14] LABS: UPreg QC Valid YES; Urine Pregnancy NEGATIVE (NEGATIVE)
[2022-06-01 08:19] LABS: Mucus Urine 1+ /LPF; RBC Urine 0-2 /HPF (0); Squamous Epithelial Cell Urine 3+ /LPF
[2022-06-01 08:20] LABS: Bacteria Urine TRACE /LPF
[2022-06-01 08:49] VITALS: BP 106/59; PULSE 72; RESP 18; O2SAT 99
[2022-06-01] MEDS: Nitrofurantoin Monohyd/M-Cryst 100 MG CAPSULE PO (08:49)
[2022-06-01 10:05] LABS: D Dimer High Sensitivity 240 NG/ML
[2022-06-01 10:11] LABS: COVID-19 Test Negative (Negative)
== END 2022-06-01 10:27 | disposition home or self-care (01) ==
PROVIDERS: Emergency Provider Student in an Organized Health Care Education/Training Program; PCP Family Medicine
DX: N39.0 Urinary tract infection, site not specified (principal); M71.22 Synovial cyst of popliteal space [Baker], left knee; Z20.822 Contact with and (suspected) exposure to COVID-19
CPT/HCPCS: 36415; 80048; 81001; 81025; 84484; 85025; 85379; 87086; 87635; 93005; 99283; 99284